=== PATIENT | female | born 1975 | race African-American/Black ===

== ENCOUNTER 2017-02-24 11:00 | Inpatient (IN) | payer OTHER ==
--- NOTE | ~2017-02-24 | PA ---
Unit #: [id number] #: [id number] Patient: MAKEDA PETTIT [id number] [facility] [place] [address] [id number] I MR#: [id number] NAME: MAKEDA PETTIT ROOM: P122 Age: 41 Sex: F Admission Date: 02/24/2017 : 1975 Date of Assessment: Attending Physician: Lemuel Childers M.D. Admitting Physician: Lemuel Childers M.D. PSYCHIATRIC ASSESSMENT COVERING PHYSICIAN/DICTATED FOR Lemuel Childers M.D. This patient was seen and assessed on 02/25/2017. INFORMANTS The patient, she was reliable; [facility]. CHIEF COMPLAINT Auditory hallucinations and drug abuse. HISTORY OF PRESENT ILLNESS Makeda Pettit is a 41-year-old female, who presented with complaint of auditory hallucinations that she stated they were telling her to hurt herself, but she denies homicidal ideation. She stated before presenting for assessment that she had smoked crack before coming in and she stated that she smoked this crack continuously for 4 days straight and did not sleep during that time. Ms. Pettit reports a long history of voices and psychosis beginning at the age of 24, when she reports us having her first and psychotic break and she stated that at that time, she believes that somebody implanted machinery in her bose to play voices, so that she thought she was crazy and stated that she begin to wash all her bose excessively at that time. She has a past history of inpatient and outpatient psychiatric treatment at [facility], [facility], and [facility]. FAMILY PSYCHIATRIC HISTORY She reports that her biological mother suffered from substance abuse issues, father substance abuse issues, and brother substance abuse issues. SOCIAL HISTORY The patient states she was residing with her sister, however, things were not going well due to sisters children being in the home. She would not elaborate on what is causing conflict regarding the children. PAST MEDICAL HISTORY Hypertension and substance abuse. Ms. Pettit reports that she smokes 1 g or more of crack per day and that she does this at least 3 times in a week, but this most recent binge was 4 days in a row and smoking 1 or more than 1 g of crack each day. She also smokes marijuana and reports that her date of last use was 2 days ago. Unit #: [id number] #: [id number] Patient: MAKEDA PETTIT MENTAL STATUS EXAMINATION Ms. Pettit presented as a well-nourished, disheveled female, who appeared older than her stated age. Her speech was rapid and pressured, but easily understood. She was alert and fully oriented at the time of the assessment. Memory and concentration were intact. Her thought processes were logical, but she reported that she was currently suffering from auditory hallucinations, and they were giving her "opinions." She at this time denied that they were command in nature and she stated that she did not have suicidal or homicidal ideation. Insight and judgment appear poor. Fund of knowledge and abstraction poor. ASSETS AND LIABILITIES The patient is aware of local resources and liabilities include inability to remain sober from using crack cocaine and lack of stable housing. ADMITTING DIAGNOSES AXIS I: Bipolar disorder, most recent episode manic with psychotic features and crack cocaine abuse. AXIS II: No diagnoses. AXIS III: Hypertension and possibility of sexually transmitted diseases. AXIS IV: AXIS V: PSYCHIATRIC PLAN The patient was admitted and placed on suicidal precautions as well as precautions for psychosis. We will restart her home medications and obtain a medical consultation for her STD exposure. Baseline laboratory studies will also be conducted. TREATMENT GOALS Resolution of and/or decrease in auditory hallucinations. Improvement in insight, improvement in coping skills and establishment of sobriety. DISCHARGE PLANNING Followup with [facility] or with [facility]. ESTIMATED LENGTH OF STAY 5 days. Dictated by... Julianna Flores/modl TD: 02/28/2017 06:26 JOB #: [id number] Unit #: [id number] #: [id number] Patient: MAKEDA PETTIT PSYCHIATRIC ASSESSMENT Page 1 of 1 X Daniella Wylie X PSYCHIATRIC ASSESSMENT
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
--- NOTE | ~2017-02-24 | PN ---
Unit #: [id number] #: [id number] Patient: MARCELLA PETTIT [id number] [place] [address] [id number] I MR#: [id number] NAME: MARCELLA PETTIT ROOM: P122 Age: 41 Sex: F Admission Date: 02/24/2017 : 1975 Attending Physician: Lemuel Childers M.D. Admitting Physician: Lemuel Childers M.D. Primary Care Physician: Primary Care Physician Estela SILVA PROGRESS NOTES DATE 02/28/[address] Lemuel Childers at [facility] DISCUSSION This patient was seen and assessed on February 28, 2017. Upon today's assessment the patient was found in her room ling in her bed appearing in no apparent discomfort. She reports that "I feel better," and states that she has been medication-compliant, eating well, and sleeping well. She reports that since reinitiation of her medications that the voices in her head have gotten better as evidenced by the amount and the loudness and frequency of the voices. She does report, however, that they still are giving her opinions on other people and her environment at this time. At this time the plan is to continue to monitor Ms. Pettit q 15 minutes for safety, and we will be working to facilitate disposition postdischarge [facility] at [facility] which she has requested. Dictated by... OLIVERIO Gil TD: 03/02/2017 05:25 JOB #: [id number] [facility] PROGRESS NOTES Page 1 of 1 X KAVEH UGNER PROGRESS NOTE
--- NOTE | ~2017-02-24 | DS ---
Unit #: [id number] #: [id number] Patient: MARCELLA PETTIT [id number] [place] [address] [id number] I MR#: [id number] NAME: MARCELLA PETTIT ROOM: P122 Age: 41 Sex: F Admission Date: 02/24/2017 : 1975 Discharge Date: 03/01/2017 Attending Physician: Lemuel Childers M.D. Primary Care Physician: Primary Care Physician No DISCHARGE SUMMARY Covering for Dr. Lemuel Childers This patient was seen and assessed on 03/01/2017. REASON FOR HOSPITALIZATION Ms. Pettit was admitted for substance abuse issues, chronic use of crack cocaine as well as auditory hallucinations that were giving "opinions." DIAGNOSTIC STUDIES Laboratory data, please see hospital chart. HOSPITAL COURSE Ms. Pettit was admitted and placed on precautions for psychosis as well as suicidal precautions. Ms. Pettit was generally quiet and withdrawn during hospitalization, and upon admission denied any suicidal or homicidal ideations. She did report positive auditory hallucinations that "gave opinions," and stated that she had been off of her medication for some time and wished to reinitiate that medication. During the stay and upon today's assessment, Ms. Pettit stated that she felt that the medications were working and she wished to continue on with her admission at the [facility] for substance abuse rehab. She stated that the voices were much quieter at this time and therefore requested discharge. DISCHARGE DIAGNOSES [place] I Bipolar disorder, most recent episode depressed, severe with psychotic features. [place] II Deferred. [place] III Current sexually transmitted infection. [place] IV [place] V FOLLOWUP CARE Follow up with community mental health substance abuse treatment resources. DISCHARGE MEDICATIONS See medical record. CONDITION AT DISCHARGE Fair. PROGNOSIS Fair. Unit #: [id number] #: [id number] Patient: MARCELLA PETTIT DIET AND ACTIVITY Ad berenice. Dictated by... Enid Unger APRN for Merle Avendano/filemon TD: 03/05/2017 06:54 JOB #: [id number] DISCHARGE SUMMARY Page 1 of 1 X ENID UNGER DISCHARGE SUMMARY
--- NOTE | ~2017-02-24 | CO ---
Unit #: [id number] #: [id number] Patient: MARCELLA GANDARA [id number] [place] [address] [id number] I MR#: [id number] NAME: MARCELLA GANDARA ROOM: P122 Age: 41 Sex: F Admission Date: 02/24/2017 : 1975 Attending Physician: Lemuel Childers M.D. Primary Care Physician: Primary Care Physician No Consultation Date: 02/27/2017 CONSULTATION REPORT Ordering provider is Dr. Childers. REASON FOR CONSULTATION Vaginal odor. SUBJECTIVE The patient reports that for several weeks, she has had a fishy vaginal odor. At the emergency room, she was given doxycycline which the nurse said would help with her vaginal infection, however, instead of getting better, things have seemed to gotten worse. She does have some whitish barkley discharge, but denies any bleeding, itching, or burning. OBJECTIVE Vaginal examination was deferred at this time. ASSESSMENT Bacterial vaginosis. PLAN To get the patient started on metronidazole. Dictated by... Julianna Kaur/fidel TD: 03/03/2017 16:30 JOB #: [id number] CONSULTATION REPORT Page 1 of 1 X JT MORIN APRN CONSULTATION REPORT
--- NOTE | ~2017-02-24 | PN ---
Unit #: [id number] #: [id number] Patient: MARCELLA PETTIT [id number] [facility] [address] [place] [address] [id number] MR#: [id number] NAME: MARCELLA PETTIT ROOM: P122 Age: 41 Sex: F Admission Date: 02/24/2017 : 1975 Attending Physician: Lemuel Childers M.D. Admitting Physician: Lemuel Childers M.D. Primary Care Physician: Primary Care Physician Estela COYNE NOTES DATE 02/27/2017 DISCUSSION Upon today's assessment the patient was noted to be sitting in the dayroom. She states "I feel better." She reports that she has been getting adequate sleep and has an approved appetite at this time. She was seen and assessed by medical staff and a regimen of Flagyl was ordered for patient's vaginal discharge. At this time the patient reports that she is medication compliant. She still reports positive auditory hallucinations that she states "gives opinions". PLAN At this time we will continue Ms. Pettit for signs and symptoms of psychosis and q. 15 minute checks for safety. Dictated by... OLIVERIO Gil/navjot TD: 03/02/2017 05:01 JOB #: [id number] RICARDO COYNE NOTES Page 1 of 1 X KAVEH UNGER PROGRESS NOTE
--- NOTE | ~2017-02-24 | HP ---
Unit #: [id number] #: [id number] Patient: MARCELLA GANDARA [id number] [facility] [address] [place] [address] [id number] MR#: [id number] NAME: MARCELLA GANDARA ROOM: P122 Age: 41 Sex: F Admission Date: 02/24/2017 : 1975 Attending Physician: Lemuel Childers M.D. Admitting Physician: Lemuel Childers M.D. Primary Care Physician: Primary Care Physician No HISTORY AND PHYSICAL HISTORY OF PRESENT ILLNESS The patient is a 41-year-old female who has [facility] for suicidal ideations and drug abuse. PAST MEDICAL HISTORY 1. Hypertension. 2. Suicide attempt. 3. Multiple pregnancies. PAST SURGICAL HISTORY 1. x2. 2. Hysterectomy. SOCIAL HISTORY The patient endorses polysubstance abuse. FAMILY HISTORY Medically noncontributory. REVIEW OF SYSTEMS CONSTITUTIONAL: Denies fever or chills. HEENT: Denies sore throat, ear pain or runny nose. CARDIOVASCULAR: Denies chest pain, irregular heart rhythm or palpitations. CHEST: Denies shortness of breath or cough. No hemoptysis. GASTROINTESTINAL: Denies nausea, vomiting, diarrhea or chronic constipation. ENDOCRINE: Denies increased thirst or urination. Denies recent weight loss or weight gain. GENITOURINARY: Denies dysuria, frequency, or hematuria. SKIN: Denies any rashes. HEMATOLOGIC: Denies any increased bleeding or bruising. MUSCULOSKELETAL: Denies any hot, swollen joints. No generalized muscle pain. NEUROLOGIC: Denies problems with speech, vision, numbness, tingling. Denies loss of bowel or bladder control. PHYSICAL EXAMINATION GENERAL: The patient is alert, in no acute distress. VITAL SIGNS: Temperature 98.2, heart rate 60, respirations 16, blood pressure 125/82. HEIGHT: 5 feet 2. WEIGHT: 178 pounds. HEENT: Head is atraumatic, normocephalic. Pupils equal, round and Unit #: [id number] #: [id number] Patient: MARCELLA GANDARA reactive. Extraocular movements are intact. No drainage from ears or nares. NECK: Supple. Trachea is midline. HEART: Regular rate and rhythm. LUNGS: Clear. ABDOMEN: Soft, nontender, nondistended. : Not done. SKIN: Warm, dry without any unusual rashes or lesions. EXTREMITIES: No clubbing, edema or cyanosis. NEUROLOGICAL: Cranial nerves II through XII intact. No focal deficits. Sensory and motor function grossly normal. Moves all extremities well. Coordination, gait is normal. Deep tendon reflexes intact. IMPRESSION Psychiatric admission. RECOMMENDATIONS PSYCHIATRIC: Will be per psychiatry. MEDICAL PROGNOSIS Fair. MEDICAL CONDITION Stable. Dictated by... Minnie aKm A.P.R.N. for Allyssa Guerrero M.D. AM/sobeida TD: 02/24/2017 15:34 JOB #: [id number] HISTORY AND PHYSICAL Page 1 of 1 X Minnie Kam CASH APPLICATIONS SPECIALIST X HISTORY AND PHYSICAL
[~2017-02-24 11:00] MED LIST: ALBUTEROL17 GM INH; BENADRYL PO; FLAGYL PO; HCTZ PO; LISINOPRIL PO; PREDNISONE1 MG PO; ZITHROMAX1 G/PKT PO
[2017-02-25 12:53] LABS: THYROID STIMULATING HORMONE 0.37 uIU/ml (0.34-5.60)
[2017-02-25 13:02] LABS: FREE THYROXIN (T4) 0.94 ng/dL (0.58-1.64)
[2017-03-03 14:58] LABS: HA AB IGM (HEPPAN) Nonreactive (()); HB CORE AB IGM (HEPPAN) Nonreactive (Nonreactive); HB S AG (HEPPAN) Nonreactive (Nonreactive); HEP C AB (HEPPAN) Nonreactive (Nonreactive); HEP C AB SIGNAL TO CUTOFF 0.02 ratio (<1.00)
== END 2017-03-01 14:45 | disposition home or self-care (01) | DRG 885 ==
LOC: P1S 13:01
PROVIDERS: Nurse Practitioner Psychiatric/Mental Health; Psychiatry & Neurology Psychiatry
DX: F31.2 Bipolar disorder, current episode manic severe with psychotic features (principal); R45.851 Suicidal ideations; I10 Essential (primary) hypertension; F14.10 Cocaine abuse, uncomplicated; Z81.3 Family history of other psychoactive substance abuse and dependence; Z91.5 Personal history of self-harm; Z90.710 Acquired absence of both cervix and uterus
CPT/HCPCS: 80074; 84439; 84443; 87806

== ENCOUNTER 2017-03-18 14:13 | Inpatient (IN) | payer OTHER ==
[~2017-03-18] VITALS: Ht 170.2 cm; Wt 61.2 kg
--- NOTE | ~2017-03-18 | PN ---
Unit #: [id number] #: [id number] Patient: MAKEDA GANDARA [id number] [facility] [address] [place] [address] [id number] I MR#: [id number] NAME: MAKEDA GANDARA ROOM: P256 Age: 41 Sex: F Admission Date: 03/18/2017 : 1975 Attending Physician: Lemuel Childers M.D. Admitting Physician: Lemuel Childers M.D. Primary Care Physician: Primary Care Physician Estela SILVA PROGRESS NOTES DATE 03/20/2017 DISCUSSION Makeda is in bed this morning, and continues to have a depressed mood with a downcast affect. She is alert and fully oriented. Her memory and concentration are fair, and her thought processes are logical with no active psychosis but ongoing suicidal ideation. She is interested in going back to the program at [facility] after discharge. ASSESSMENT Bipolar depressed. PLAN Continue current treatment plan. Dictated by... Merle Avendano/filemon TD: 03/22/2017 09:33 JOB #: [id number] RICARDO PROGRESS NOTES Page 1 of 1 X Lemuel Childers MD PROGRESS NOTE
--- NOTE | ~2017-03-18 | HP ---
Unit #: [id number] #: [id number] Patient: MAKEDA GANDARA [id number] [place] [address] [id number] I MR#: [id number] NAME: MAKEDA GANDARA. ROOM: P256 Age: 41 Sex: F Admission Date: 03/18/2017 : 1975 Attending Physician: Lemuel Childers M.D. Admitting Physician: Lemuel Childers M.D. Primary Care Physician: Primary Care Physician No HISTORY AND PHYSICAL HISTORY OF PRESENT ILLNESS Makeda is a 41 year old admitted to [facility] with psychotic behavior. She has had other admissions to this facility. She is a poor historian so her history is taken from her chart. She was recently discharged from this facility. The patient was seen and H and P dated 02/24/2017 was reviewed. This is current. No changes. Please see H and P dated 12/25/2016. Dictated by... Odalis Conner P.A.-C. for Merle Farrell/navjot TD: 03/19/2017 19:53 JOB #: [id number] HISTORY AND PHYSICAL Page 1 of 1 X Odalis Conner HISTORY AND PHYSICAL
--- NOTE | ~2017-03-18 | PA ---
Unit #: [id number] #: [id number] Patient: MAKEDA GANDARA [id number] [place] [address] [id number] MR#: [id number] NAME: MAKEDA GANDARA. ROOM: P256 Age: 41 Sex: F Admission Date: 03/18/2017 : 1975 Date of Assessment: 03/18/2017 Attending Physician: Lemuel Childers M.D. Admitting Physician: Lemuel Childers M.D. Primary Care Physician: Primary Care Physician No PSYCHIATRIC ASSESSMENT INFORMANTS The patient reliable; [facility], reliable; [place] [facility], reliable. CHIEF COMPLAINT Auditory hallucinations with command suicidal content. HISTORY OF PRESENT ILLNESS Makeda Gandara is a 41-year-old woman with multiple admissions to this facility for bipolar disorder and occasional drug use including cocaine and marijuana. The patient reports she has been off her medications as depressed having auditory and visual hallucinations. She reports increasing symptoms over the past week and was unable to contract for safety against self-harm. She was readmitted for stabilization. PAST PSYCHIATRIC HISTORY The patient was recently at this facility during my absence and was treated by my covering practitioner. She has been in this facilities in numerous occasions for bipolar disorder and has been noncompliant with Fanapt. FAMILY PSYCHIATRIC HISTORY The patient had a substance abuse history in her mother, brother, and father. SOCIAL HISTORY The patient has 9 children, who have been born and removed in state custody. She is currently staying with her sister and has significant conflict in the home. PAST MEDICAL HISTORY The patient has lost a considerable amount of weight in the last year, but denies any chronic medical illnesses. MEDICATIONS None currently. ALLERGIES No known medication allergies. SUBSTANCE USE HISTORY The patient has been using cocaine and occasional marijuana. MENTAL STATUS EXAMINATION Unit #: [id number] #: [id number] Patient: MAKEDA GANDARA Ms. presented as woman appearing her stated age. She was cooperative with the examination. Her speech was spontaneous and easily understood. Musculoskeletal examination was calm. Her mood was depressed with a congruent affect. She was alert and fully oriented. Her memory and concentration were intact. Her thought processes were logical and goal directed with auditory hallucinations and command suicidal content. She could not contract for safety outside the hospital. Insight and judgment, fair. Fund of knowledge and abstraction, fair. ASSETS AND LIABILITIES The patient knows local resources and presents voluntarily for treatment. Liabilities include lack of current treatment and access. ADMITTING DIAGNOSES AXIS I: Bipolar depressed, F31.4; cocaine abuse. AXIS II: No diagnosis. AXIS III: Hypertension, possible vaginosis. AXIS IV: AXIS V: PSYCHIATRIC PLAN The patient was admitted and placed on suicide precautions. Fanapt 2 mg twice a day will be restarted and we will restart her on Flagyl and Diflucan for possible STD exposure. She will enroll in dual diagnosis groups and activities. TREATMENT GOALS Resolution of SI, improvement in insight, and improvement in coping skills. DISCHARGE PLANNING [facility] up with [facility]. ESTIMATED LENGTH OF STAY 5 days. Dictated by... Lemuel Childers M.D. CODY/fidel TD: 03/20/2017 05:52 JOB #: [id number] PSYCHIATRIC ASSESSMENT Page 1 of 1 X Lemuel Childers MD X PSYCHIATRIC ASSESSMENT
--- NOTE | ~2017-03-18 | PN ---
Unit #: [id number] #: [id number] Patient: MAKEDA GANDARA [id number] [facility] [address] [place] [address] [id number] MR#: [id number] NAME: MAKEDA GANDARA. ROOM: P256 Age: 41 Sex: F Admission Date: 03/18/2017 : 1975 Attending Physician: Lemuel Childers M.D. Admitting Physician: Lemuel Childers M.D. Primary Care Physician: Primary Care Physician Estela SILVA PROGRESS NOTES DATE OF SERVICE 03/22/2017 DISCUSSION Makeda is compliant with medications and has less labile and irritable mood today. She is alert and fully oriented. Her memory and concentration are fair. Her thought process is somewhat rambling but less psychotic and she has no SI today. ASSESSENT Bipolar mixed. PLAN Continue current treatment plan. Dictated by... Merle Avendano/navjot TD: 03/23/2017 23:00 JOB #: [id number] [facility] PROGRESS NOTES Page 1 of 1 X Lemuel Childers MD X PROGRESS NOTE
[2017-03-19 09:45] LABS: URINE APPEARANCE CLEAR; URINE BILIRUBIN NEG (NEG); URINE BLOOD NEG (NEG); URINE COLOR YELLOW; URINE GLUCOSE NEG (NEG); URINE KETONE NEG (NEG); URINE LEUKOCYTE ESTERASE NEG (NEG); URINE NITRATE NEG (NEG); URINE PH 5.5 (5-8); URINE PROTEIN NEG (NEG); URINE SPECIFIC GRAVITY 1.029 (1.003-1.035)
[2017-03-19 09:48] LABS: BASOPHIL# 0.1 X10e3 (0-0.3); BASOPHIL% 1.3 % (0-2.5); EOSINOPHIL# 0.3 X10e3 (0-0.7); EOSINOPHIL% 7.3 % (0.0-7.0); HEMATOCRIT 40.9 % (35.0-45.0); HEMOGLOBIN 13.6 gm/dL (12.0-16.0); LYMPHOCYTE# 1.9 X10e3 (1.0-3.5); LYMPHOCYTE% 39.5 % (17.0-45.0); MEAN CELL VOLUME 89.5 FL (83-96); MEAN CORPUSCULAR HEMOGLOBIN 29.9 PG (28-34); MEAN CORPUSCULAR HGB CONC 33.4 g/dL (30-36); MEAN PLATELET VOLUME 9.9 FL (6.5-11.5); MONOCYTE# 0.4 X10e3 (0-1.0); MONOCYTE% 8.1 % (3.0-12.0); NEUTROPHIL# 2.1 X10e3 (1.5-7.1); NEUTROPHIL% 43.8 % (40-75); PLATELET COUNT 140 X10e3 (140-420); RED BLOOD COUNT 4.57 X10e (3.90-5.30); RED CELL DISTRIBUTION WIDTH 14.9 % (11.0-15.5); WHITE BLOOD COUNT 4.7 X10e3 (4.0-10.5)
[2017-03-19 09:52] LABS: ALBUMIN SERUM 3.3 g/dL (3.5-5.0); BILIRUBIN,TOTAL 0.7 mg/dL (0.2-2.0); BUN/CREATININE RATIO 14.44; CALCIUM SERUM 8.7 mg/dL (8.4-10.2); CREATININE SERUM 0.9 mg/dL (0.6-1.4); GLOM FILT RATE Estimated 92.8 mL/min (>60); POTASSIUM 4.2 mmol/L (3.5-5.1); PROTEIN TOTAL SERUM 5.8 g/dL (6.0-8.3)
[2017-03-19 09:53] LABS: DIFF IND NO
[2017-03-19 10:18] LABS: AMPHETAMINE NEG (NEG); BARBITURATES NEG (NEG); BENZODIAZEPINES NEG (NEG); COCAINE POS (NEG); MARIJUANA POS (NEG); OPIATES NEG (NEG); TRICYCLIC ANTIDEPRESSANTS NEG (NEG); U METHADONE NEG (NEG)
== END 2017-03-23 13:10 | disposition home or self-care (01) | DRG 885 ==
LOC: P2L 21:13
PROVIDERS: Psychiatry & Neurology Psychiatry
DX: F31.60 Bipolar disorder, current episode mixed, unspecified (principal); I10 Essential (primary) hypertension; Z81.4 Family history of other substance abuse and dependence; F14.10 Cocaine abuse, uncomplicated
CPT/HCPCS: 80053; 80307; 81003; 84703; 85025